=== PATIENT | male | born 1955 | race African-American/Black ===

== ENCOUNTER 2016-07-31 11:47 | Emergency (ER) | payer MEDICAID ==
--- NOTE | 2016-07-31 12:11 | ER Document Report ---
ED Medical Screen (RME) - General Stated Complaint: BLOOD PRESSURE PROBLEM Notes: Patient was at dentist this morning and was advised that his blood pressure was high. Pressure in triage is 190/100. Patient states he feels great denies, any symptoms at this time. Does not believe in doctors, or taking medications. Patient denies chest pain or shortness of breath, stating he feels like he is 27 years old. I have greeted and performed a rapid initial assessment of this patient. A comprehensive ED assessment and evaluation of the patient, analysis of test results and completion of the medical decision making process will be conducted by additional ED providers. Physical Exam - Vital signs Vitals: Temp Pulse Resp BP Pulse Ox 98.5 F 84 18 190/100 H 99 07/31/16 12:06 07/31/16 12:06 07/31/16 12:06 07/31/16 12:06 07/31/16 12:06 - Cardiovascular Rhythm: Regular Heart sounds: Normal auscultation Course - Vital Signs Vital signs: Temp Pulse Resp BP Pulse Ox 98.5 F 84 18 190/100 H 99 07/31/16 12:06 07/31/16 12:06 07/31/16 12:06 07/31/16 12:06 07/31/16 12:06
--- NOTE | 2016-07-31 16:00 | ER Document Report ---
HPI - HPI Patient complains to provider of: elevated blood pressure Onset: This afternoon Onset/Duration: Gradual Quality of pain: No pain Pain Level: 0 Context: Patient states he was at his dentist office for routine cleaning and to get fit for a new partial. Patient states that he was not having any dental or jaw pain at the time. Patient reports that his blood pressure was 200/108 in the office. Patient states that the dentist advised him to come to the ER for further evaluation. Patient does report that he has been eating a lot more sodium in his diet recently. Patient denies any chest pain, shortness of breath , headache, visual problems or urinary problems. Patient does state that he was feeling somewhat stressed when he was at the dentist office today. Associated Symptoms: None. denies: Chest pain, Nonproductive cough, Earache, Fever, Headache, Nausea, Vomiting, Rhinnorhea, Shortness of breath Exacerbated by: Denies Relieved by: Denies Similar symptoms previously: No Recently seen / treated by doctor: Yes - ROS ROS below otherwise negative: Yes Systems Reviewed and Negative: Yes All other systems reviewed and negative - CONSTITUTIONAL Constitutional: DENIES: Fever, Chills - EENT EENT: DENIES: Sore Throat, Ear Pain - CARDIOVASCULAR Cardiovascular: DENIES: Chest pain - RESPIRATORY Respiratory: DENIES: Trouble Breathing, Coughing - GASTROINTESTINAL Gastrointestinal: DENIES: Abdominal Pain, Nausea, Patient vomiting - URINARY Urinary: DENIES: Dysuria, Urgency, Frequency - MUSCULOSKELETAL Musculoskeletal: DENIES: Extremity pain, Back Pain - DERM Skin Color: Normal Skin Problems: None Past Medical History - General Information source: Patient - Social History Smoking Status: Former Smoker Chew tobacco use (# tins/day): No Frequency of alcohol use: None Drug Abuse: None Occupation: none Lives with: Family Family History: Reviewed & Not Pertinent Patient has suicidal ideation: No Patient has homicidal ideation: No - Medical History Medical History: Other - Sickle cell ? Trait Renal/ Medical History: Denies: Hx Peritoneal Dialysis GI Medical History: Reports: Hx Ulcer Musculoskeltal Medical History: Reports Hx Arthritis Surgical Hx: Negative Vertical Provider Document - CONSTITUTIONAL Agree With Documented VS: Yes Exam Limitations: No Limitations General Appearance: WD/WN, No Apparent Distress - INFECTION CONTROL TRAVEL OUTSIDE OF THE [place] IN LAST 30 DAYS: No - HEENT HEENT: Atraumatic, Normocephalic Notes: Upper plate, patient with multiple fillings to lower jaw, no dental abscess or infection - NECK Neck: Normal Inspection, Supple - RESPIRATORY Respiratory: Breath Sounds Normal, No Respiratory Distress, Chest Non-Tender. negative: Rales, Rhonchi, Wheezing O2 Sat by Pulse Oximetry: 98 - CARDIOVASCULAR Cardiovascular: Regular Rate, Regular Rhythm, No Murmur - GI/ABDOMEN Gastrointestinal: Abdomen Soft, Abdomen Non-Tender, No Organomegaly. negative: Abdominal Mass - BACK Back: Normal Inspection. negative: CVA Tenderness-Right, CVA Tenderness-Left - MUSCULOSKELETAL/EXTREMETIES Musculoskeletal/Extremeties: MAEW, FROM, No Edema. negative: Edema - NEURO Level of Consciousness: Awake, Alert, Appropriate Motor/Sensory: No Motor Deficit - DERM Integumentary: Warm, Dry, No Rash Course - Re-evaluation Re-evalutation: 07/31/16 15:[address] Waldron regarding patient presentation and management. Recommends clarifying whether or not patient was seen his dentist due to dental pain Spoke with patient, patient states that he went to the dentist for routine cleaning and to get fitted for a new partial. Patient denies any dental pain or jaw pain. - Vital Signs Vital signs: Temp Pulse Resp BP Pulse Ox 98.1 F 88 16 155/106 H 98 07/31/16 14:43 07/31/16 14:43 07/31/16 14:43 07/31/16 14:43 07/31/16 14:43 Discharge - Discharge Clinical Impression: Elevated blood pressure reading Condition: Stable Disposition: HOME, SELF-CARE Instructions: High Blood Pressure ([facility]) Additional Instructions: Return immediately for any new or worsening symptoms Followup with your primary care provider, call tomorrow to make a followup appointment Decrease sodium in your diet Forms: Elevated Blood Pressure Referrals: CARYN CARLSON MD [Primary Care Provider] - Follow up tomorrow
[2016-07-31 16:23] VITALS: BP 148/108
== END 2016-07-31 16:23 | disposition home or self-care (01) ==
LOC: ER 11:47
DX: R03.0 Elevated blood-pressure reading, without diagnosis of hypertension (principal); Z87.891 Personal history of nicotine dependence
CPT/HCPCS: 99283

== ENCOUNTER 2016-09-09 08:01 | Emergency (ER) | payer MEDICAID ==
[2016-09-09 09:30] LABS: ABSOLUTE BASOPHILS # (AUTO) 0.1 10^3/uL (0.0-0.2); ABSOLUTE LYMPHOCYTES (AUTO) 1.7 10^3/uL (0.5-4.7); ABSOLUTE MONOCYTES (AUTO) 0.4 10^3/uL (0.1-1.4); ABSOLUTE NEUT (AUTO) 3.2 10^3/uL (1.7-8.2); EOSINOPHILS % (AUTO) 0.7 % (0-6); HEMATOCRIT 45.9 % (37.9-51.0); HEMOGLOBIN 15.1 g/dL (13.5-17.0); HGB HCT DIFFERENCE -0.6; MEAN CORPUSCULAR HEMOGLOBIN 27.4 pg (27.0-33.4); MEAN CORPUSCULAR VOLUME 83 fl (80-97); MONOCYTES % (AUTO) 8.1 % (3-13); RED BLOOD COUNT 5.52 10^6/uL (4.35-5.55); RED CELL DISTRIBUTION WIDTH 13.1 % (11.5-14.0); SEGMENTED NEUTROPHILS % (AUTO) 59.2 % (42-78); WHITE BLOOD COUNT 5.4 10^3/uL (4.0-10.5)
[2016-09-09] MEDS ORDERED: ONDANSETRON 4 MG TAB.RAPDIS PO ONE (09:30)
[2016-09-09 09:53] LABS: ANION GAP 16 (5-19); BLOOD UREA NITROGEN 40 mg/dL (7-20); CALCIUM 10.6 mg/dL (8.4-10.2); CARBON DIOXIDE 31 mmol/L (22-30); CHLORIDE 92 mmol/L (98-107); CREATININE RESULT 1.54 mg/dL (0.52-1.25); GLUCOSE 156 mg/dL (75-110); LIPASE 56.7 U/L (23-300); POTASSIUM 5.5 mmol/L (3.6-5.0); SODIUM 138.7 mmol/L (137-145)
[2016-09-09 10:06] VITALS: BP 129/77
--- NOTE | 2016-09-09 10:35 | ER Document Report ---
ED GI/ - General Chief Complaint: Abdominal Pain Stated Complaint: STOMACH PAIN Notes: Patient is a 61-year-old male who presents emergency room complaining of generalized malaise that started Saturday. Patient states that he was started on a new medication for blood pressure by his primary care physician Dr. Piedra. Patient states that his first dose was Saturday and that is been taking it as prescribed since then. He is not sure when his next follow-up is due. Otherwise patient states that he is a very fit individual he rides his bike all of her town approximately 15 miles a day. Denies any fever, chills, headache, cough, sore throat, chest pain, difficulty breathing, shortness of breath, nausea, vomiting, abdominal pain, diarrhea, constipation. He does admit to urinary frequency. PCP is Dr. Barrientos Meds: Triamterene 37.5/HCTZ 25 05/14 tab TRAVEL OUTSIDE OF THE [place] IN LAST 30 DAYS: No - Related Data Allergies/Adverse Reactions: ampicillin Allergy (Verified 07/31/16 12:11) Past Medical History - Social History Smoking Status: Former Smoker Chew tobacco use (# tins/day): No Frequency of alcohol use: None Drug Abuse: None Family History: Reviewed & Not Pertinent Patient has suicidal ideation: No Patient has homicidal ideation: No - Past Medical History Cardiac Medical History: Reports: Hx Hypertension Renal/ Medical History: Denies: Hx Peritoneal Dialysis GI Medical History: Reports: Hx Ulcer Musculoskeltal Medical History: Reports Hx Arthritis Surgical Hx: Negative Review of Systems - Review of Systems Constitutional: See HPI EENT: No symptoms reported Cardiovascular: No symptoms reported Respiratory: No symptoms reported Gastrointestinal: No symptoms reported Genitourinary: No symptoms reported Male Genitourinary: No symptoms reported Musculoskeletal: No symptoms reported Skin: No symptoms reported Hematologic/Lymphatic: No symptoms reported Neurological/Psychological: No symptoms reported Physical Exam - Vital signs Vitals: Temp Pulse Resp BP Pulse Ox 97.7 F 44 L 20 132/68 H 98 09/09/16 08:06 09/09/16 08:06 09/09/16 08:06 09/09/16 08:06 09/09/16 08:06 Interpretation: Hypertensive, Other - Patient was placed on the monitor given an initial heart rate of 44 beats per minute. Patient maintained a heart rate and normal sinus rhythm on monitor of 75-85. - Notes Notes: PHYSICAL EXAM GENERAL: Alert, interacts well. HEAD: Normocephalic, atraumatic. EYES: Pupils equal, round, and reactive to light. Extraocular movements intact. ENT: Oral mucosa moist, tongue midline. NECK: Full range of motion. Supple. Trachea midline. LUNGS: Clear to auscultation bilaterally, no wheezes, rales, or rhonchi. No respiratory distress. HEART: Regular rate and rhythm. No murmurs, gallops, or rubs. ABDOMEN: Soft, nondistended, nontender. No guarding, rebound, or rigidity.. Bowel sounds present in all 4 quadrants. EXTREMITIES: Moves all 4 extremities spontaneously. No edema, radial and dorsalis pedis pulses 2/4 bilaterally. No cyanosis. NEUROLOGICAL: Alert and oriented x4. Normal speech. PSYCH: Normal affect, normal mood. SKIN: Warm, dry, normal turgor. No rashes or lesions noted. Course - Re-evaluation Re-evalutation: 09/09/16 14:52 Patient is a 61-year-old male who is hemodynamically stable, no acute distress and afebrile. CBC normal, BMP shows evidence of dehydration likely due to his diuretic for blood pressure. Told patient to stop taking his medication and follow-up with Dr. Piedra this week. - Vital Signs Vital signs: Temp Pulse Resp BP Pulse Ox 97.7 F 44 L 17 129/77 H 100 09/09/16 08:06 09/09/16 08:06 09/09/16 10:01 09/09/16 10:01 09/09/16 10:01 - Laboratory Result Diagrams: 09/09/16 09:20 09/09/16 09:20 Laboratory results interpreted by me: 09/09/16 09/09/16 09:20 10:20 Potassium 5.5 H Chloride 92 L Carbon Dioxide 31 H BUN 40 H Creatinine 1.54 H Est GFR ( Amer) 56 L Est GFR (Non-Af Amer) 46 L Glucose 156 H Calcium 10.6 H Urine Blood SMALL H Discharge - Discharge Clinical Impression: Dehydration Condition: Good Disposition: HOME, SELF-CARE Instructions: Dehydration ([facility]) Additional Instructions: Please stop taking your blood pressure medication until you follow up with your primary care physician You need to set up an appointment for this week Referrals: CARYN BARRIENTOS MD [NO LOCAL MD] - Follow up tomorrow
[2016-09-09 10:47] LABS: APPEARANCE,URINE SLIGHTLY-CLOUDY; BILIRUBIN,URINE NEGATIVE (NEGATIVE); GLUCOSE, URINE NEGATIVE (NEGATIVE); KETONES,URINE NEGATIVE (NEGATIVE); LEUKOCYTE ESTERASE,URINE NEGATIVE (NEGATIVE); NITRITE,URINE NEGATIVE (NEGATIVE); PROTEIN,URINE NEGATIVE (NEGATIVE); URINE SPECIFIC GRAVITY 1.011; UROBILINOGEN,URINE NEGATIVE mg/dL (<2.0)
== END 2016-09-09 11:42 | disposition home or self-care (01) ==
LOC: ER 08:01
DX: E86.0 Dehydration (principal); R10.9 Unspecified abdominal pain; R53.81 Other malaise; I10 Essential (primary) hypertension; Z88.0 Allergy status to penicillin; Z87.891 Personal history of nicotine dependence
CPT/HCPCS: 99284; 36415; 83690; 85025; 80048; 81001; S0119